=== PATIENT | female | born 1965 | race Two or more races ===

== ENCOUNTER → 2024-03-20 | Outpatient (CLI) | payer OTHER, SELFPAY ==
[2024-03-20 12:17] LABS: HIV (1&2) Antibody Rapid Non-Reactive
[2024-03-22 17:49] LABS: HCV RNA, PCR <15 NOT DETECTED IU/mL
[2024-03-23 06:48] LABS: HCV RNA, PCR Log IU <1.18 NOT DETECTED Log IU/mL
== END | disposition home or self-care (01) ==
LOC: COPL 11:01
PROVIDERS: PCP Registered Nurse; Referring Provider Nurse Practitioner Family; Visit Provider Nurse Practitioner Family
DX: Z01.89 Encounter for other specified special examinations (principal)
CPT/HCPCS: 36415; 86703; 87522